=== PATIENT | male | born 1995 | race Caucasian/White ===

== ENCOUNTER 2022-05-28 09:22 | Outpatient (CLI) | payer OTHER | END 2022-05-28 09:23 | disposition home or self-care (01) | LOC: CSHCT 09:22 | PROVIDERS: ATTEND Physician Assistant Medical | DX: R10.31 Right lower quadrant pain (principal); M47.816 Spondylosis without myelopathy or radiculopathy, lumbar region | CPT/HCPCS: 74177 ==